=== PATIENT | male | born 1990 | race Caucasian/White ===

== ENCOUNTER 2017-04-21 19:54 | Emergency (ER) | payer MEDICAID ==
[2017-04-21 20:08] VITALS: BP 141/98
--- NOTE | 2017-04-21 21:22 | EDM.PDOC ---
ED HPI GENERAL MEDICAL PROBLEM - General Chief Complaint: General Stated Complaint: SOB SHAKEY SOME NAUSEA Time Seen by Provider: 04/21/17 21:00 Source of Information: Reports: Patient History Limitations: Reports: No Limitations - History of Present Illness INITIAL COMMENTS - FREE TEXT/NARRATIVE: 27-year-old male presents for evaluation treatment of multiple vague complaints. Patient reports today he started experiencing dizziness, nausea, lightheadedness, weakness and fatigue. He denies any vomiting, diarrhea or cough. He reports that his stomach has been feeling upset easily. Patient reports that he moved to [place], [place] about a year ago from [place]. He states periodically while in [place] he had pain to the left side of his chest around ribs 5 and 6. He has been worked up for this in [place] and told he had costochondritis or pleurisy. Patient reports that he experienced the sharp pain and left-sided chest pain again today. It has resolved prior to arrival in the ER. Reports pain with deep breathing when the chest pain is present. Additionally, patient complains of a sharp pain in his abdomen. States that it moves throughout his abdomen. Reports that on Saturday he had severe pain in his abdomen from not eating. Reports that several hours after eating and drinking the pain resolves. States he was told previously he has an ulcer in his stomach. He has not tried any medications for this. Additionally, patient was seen in [place] recently for polyuria. Urine was negative. He also reports polydipsia. Unclear if any lab studies were done. Treatments HOSPITAL FELLOW: Reports: Other (see below) Other Treatments HOSPITAL FELLOW: [facility]N treatment bilateral upper abdomen Pain Score (Numeric/FACES): 2 - Related Data Allergies Allergy/AdvReac Type Severity Reaction Status Date / Time No Known Allergies Allergy Verified 04/21/17 20:08 Home Meds: Home Meds . [No Known Home Meds] 04/21/17 [History] Past Medical History - Past Health History Medical/Surgical History: Denies Medical/Surgical History Social & Family History - Family History Family Medical History: Noncontributory - Tobacco Use Smoking Status *Q: Never Smoker - Caffeine Use Caffeine Use: Reports: Coffee - Recreational Drug Use Recreational Drug Use: No ED ROS GENERAL - Review of Systems Review Of Systems: See Below Constitutional: Reports: Malaise, Weakness, Fatigue. Denies: Weight Loss, Weight Gain Respiratory: Reports: Shortness of Breath Cardiovascular: Reports: Chest Pain Endocrine: Reports: Fatigue, Polydypsia, Polyuria GI/Abdominal: Reports: Abdominal Pain, Nausea. Denies: Diarrhea, Vomiting Neurological: Reports: Dizziness, Headache ED EXAM, GENERAL - Physical Exam Exam: See Below Exam Limited By: No Limitations General Appearance: Alert, WD/WN, No Apparent Distress Ears: Normal External Exam Ear Exam: Right Ear: TM Perforation, Left Ear: TM normal Nose: Normal Inspection Throat/Mouth: Normal Inspection, Normal Lips, Normal Voice, No Airway Compromise Respiratory/Chest: No Respiratory Distress, Lungs Clear, Normal Breath Sounds, Chest Non-Tender Cardiovascular: Normal Peripheral Pulses, Regular Rate, Rhythm, No Murmur GI/Abdominal: Normal Bowel Sounds, Soft, Non-Tender Neurological: Alert, Oriented, Normal Cognition Psychiatric: Normal Affect, Normal Mood Course - Vital Signs Last Recorded V/S: Last Vital Signs Temp 36.3 C 04/21/17 20:04 Pulse 77 04/21/17 20:04 Resp 18 04/21/17 20:04 BP 141/98 H 04/21/17 20:04 Pulse Ox 100 04/21/17 20:04 - Orders/Labs/Meds Labs: Laboratory Tests 04/21/17 04/21/17 04/21/17 Range/Units 21:26 21:26 21:28 WBC 9.50 H (4.23-9.07) K/mm3 RBC 4.48 L (4.63-6.08) M/mm3 Hgb 14.7 (13.7-17.5) gm/L Hct 41.6 (40.1-51.0) % MCV 92.9 H (79.0-92.2) fl MCH 32.8 H (25.7-32.2) pg MCHC 35.3 (32.2-35.5) g/dl RDW Std Deviation 39.9 (35.1-43.9) fL Plt Count 196 (163-337) K/mm3 MPV 10.1 (9.4-12.3) fl Neut % (Auto) 84.5 H (34.0-67.9) % Lymph % (Auto) 9.4 L (21.8-53.1) % [place] % (Auto) 5.4 (5.3-12.2) % Eos % (Auto) 0.5 L (0.8-7.0) Baso % (Auto) 0.1 (0.1-1.2) % Neut # (Auto) 8.03 H (1.78-5.38) K/mm3 Lymph # (Auto) 0.89 L (1.32-3.57) K/mm3 [place]ander # (Auto) 0.51 (0.30-0.82) K/mm3 Eos # (Auto) 0.05 (0.04-0.54) K/mm3 Baso # (Auto) 0.01 (0.01-0.08) K/mm3 Manual Slide Review Normal smear Sodium 141 (136-145) mEq/L Potassium 3.9 (3.5-5.1) mEq/L Chloride 105 (98-107) mEq/L Carbon Dioxide 28 (21-32) mEq/L Anion Gap 11.9 (5-15) BUN 9 (7-18) mg/dL Creatinine 1.0 (0.7-1.3) mg/dL Est Cr Clr Drug Dosing 113.90 mL/min Estimated GFR (MDRD) > 60 (>60) mL/min BUN/Creatinine Ratio 9.0 L (14-18) Glucose 121 H (74-106) mg/dL Calcium 9.1 (8.5-10.1) mg/dL Total Bilirubin 0.3 (0.2-1.0) mg/dL AST 19 (15-37) U/L ALT 20 (16-63) U/L Alkaline Phosphatase 81 (46-116) U/L Total Protein 7.5 (6.4-8.2) g/dl Albumin 4.2 (3.4-5.0) g/dl Globulin 3.3 gm/dL Albumin/Globulin Ratio 1.3 (1-2) TSH 3rd Generation 1.247 (0.358-3.74) uIU/mL Urine Color Light yellow (Yellow) Urine Appearance Clear (Clear) Urine pH 7.0 (5.0-8.0) Ur Specific [place] 1.010 (1.005-1.030) Urine Protein Negative (Negative) Urine Glucose (UA) Negative (Negative) Urine Ketones Negative (Negative) Urine Occult Blood Negative (Negative) Urine Nitrite Negative (Negative) Urine Bilirubin Negative (Negative) Urine Urobilinogen 0.2 (0.2-1.0) Ur Leukocyte Esterase Negative (Negative) Urine RBC Not seen (0-5) /hpf Urine WBC Not seen (0-5) /hpf Ur Epithelial Cells Not seen (0-5) /hpf Urine Bacteria Not seen (FEW) /hpf Urine Mucus Not seen (FEW) /hpf - Radiology Interpretation Free Text/Narrative:: chest 2 view shows no acute intrathoracic process - Re-Assessments/Exams Free Text/Narrative Re-Assessment/Exam: 04/21/17 22:24 PERC rule rules out PE. I reviewed the lab and x-ray results with the patient. I feel is likely a viral illness. His symptoms should resolve within 1-2 weeks. I encouraged him to rest, drink fluids and take [id number] Tylenol or Motrin. Follow-up with primary care provider if not much better in one week. Departure - Departure Time of Disposition: 22:24 Disposition: Home, Self-Care 01 Condition: Good Clinical Impression: Viral illness - Discharge Information Referrals: PCP,None [Primary Care Provider] - Forms: ED Department Discharge Additional Instructions: [id number] Tylenol or Motrin as needed for pain relief. Expect your symptoms to last for the next 1-2 weeks. If you're not much better in one week follow-up with family medicine. If you need a provider here in [place], recommend Jessica Guevara or [facility]. Please call [phone] schedule with one of them. may try an [id number] PPI product such as Prilosec or Nexium to help with your stomach discomfort. Please return to the ER if your symptoms change or worsen.
--- NOTE | 2017-04-22 12:17 | CR ---
Chest: Two views of the chest were obtained. Comparison: No prior study. Heart size and mediastinum are normal. Lungs are clear. Bony structures are unremarkable for the patient's age. Impression: 1. Nothing acute is identified on two-view chest x-ray. Diagnostic code #1
== END 2017-04-21 22:33 | disposition home or self-care (01) ==
LOC: JD.ED 19:54
DX: B34.9 Viral infection, unspecified (principal)
CPT/HCPCS: 36415; 71020; 71020-26; 80053; 81001; 84443; 85025; 99283; 99285

== ENCOUNTER 2017-05-26 19:32 | Emergency (ER) | payer MEDICAID ==
[2017-05-26 21:03] VITALS: BP 137/100
--- NOTE | 2017-05-26 21:04 | EDM.PDOC ---
ED HPI GENERAL MEDICAL PROBLEM - General Chief Complaint: Chest Pain Stated Complaint: CHEST PAIN Time Seen by Provider: 05/26/17 20:25 Source of Information: Reports: Patient History Limitations: Reports: No Limitations - History of Present Illness INITIAL COMMENTS - FREE TEXT/NARRATIVE: Patient is a 25-year-old male presents ED complaining of left-sided intermittent chest discomfort. States started approximately 2 weeks ago discomfort came on with unclear precipitating cause. States has been intermittent worsened at times with breathing and palpation. Pain is pin point just above his left nipple. At times the pain stops him from taking a deep breath. Only last for a few seconds. No recent trauma or activity and he precipitated this. 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 He has no prior history of similar symptoms. Denies any cough, shows breath, fever, nausea/vomiting, abdominal pain, palpitations, or preceding 3/syncopal episodes. He has taken Tylenol with minimal change. Patient is a smoker utilize alcohol. He was smokes marijuana on intermittent basis. Last use was 2 months ago. Postive family history of heart disease his father at age of 53. He is still living. Left Mid-Sternal Chest Pain Score (Numeric/FACES): 9 - Related Data Allergies Allergy/AdvReac Type Severity Reaction Status Date / Time No Known Allergies Allergy Verified 05/26/17 19:48 Home Meds: Home Meds Fish Oil/[place]-3 Fatty Acids [Fish Oil 1,000 MG] 1,000 mg PO DAILY 05/26/17 [ History] Past Medical History - Past Health History Medical/Surgical History: Denies Medical/Surgical History Social & Family History - Family History Family Medical History: Noncontributory - Tobacco Use Smoking Status *Q: Never Smoker Second Hand Smoke Exposure: No - Caffeine Use Caffeine Use: Reports: Soda - Recreational Drug Use Recreational Drug Use: Yes Drug Use in Last 12 Months: Yes Recreational Drug Type: Reports: Marijuana/Hashish Recreational Drug Use Frequency: Not Used In Over 3 Months ED ROS GENERAL - Review of Systems Review Of Systems: ROS reveals no pertinent complaints other than HPI. ED EXAM, GENERAL - Physical Exam Exam: See Below Exam Limited By: No Limitations General Appearance: Alert, WD/WN, No Apparent Distress Ears: Hearing Grossly Normal Nose: Normal Inspection Throat/Mouth: Normal Voice, No Airway Compromise Neck: Normal Inspection, Supple Respiratory/Chest: No Respiratory Distress, Lungs Clear, Normal Breath Sounds, No Accessory Muscle Use Cardiovascular: Normal Peripheral Pulses, Regular Rate, Rhythm, No Murmur Peripheral Pulses: 2+: Radial (L), Radial (R) GI/Abdominal: Normal Bowel Sounds, Soft, Non-Tender, No Organomegaly, No Distention Extremities: Normal Inspection, Non-Tender, No Pedal Edema Neurological: Alert, Oriented, CN II-XII Intact, Normal Cognition, No Motor/ Sensory Deficits Psychiatric: Normal Affect, Normal Mood Skin Exam: Warm, Dry, Intact, Normal Color Course - Vital Signs Last Recorded V/S: Last Vital Signs Temp 97.2 F 05/26/17 19:47 Pulse 69 05/26/17 19:47 Resp 19 05/26/17 19:47 BP 137/100 H 05/26/17 19:47 Pulse Ox 100 05/26/17 19:47 - Orders/Labs/Meds Orders: Active Orders 24 hr Category Date Time Status EKG Documentation Completion [RC] ASDIRECTED Care 05/26/17 20:00 Active CXR [Chest 1V Frontal] [CR] Stat Exams 05/26/17 20:50 Taken Ibuprofen [Motrin] Med 05/26/17 21:50 Once 800 mg PO ONETIME ONE EKG 12 Lead [EK] Stat Ther 05/26/17 20:00 Ordered Medication Orders Ibuprofen (Motrin) 800 mg PO ONETIME ONE Stop: 05/26/17 21:51 Meds: Medications Generic Name Dose Route Start Last Admin Trade Name Freq PRN Reason Stop Dose Admin Ibuprofen 800 mg 05/26/17 21:50 Motrin PO 05/26/17 21:51 ONETIME ONE - Re-Assessments/Exams Free Text/Narrative Re-Assessment/Exam: EKG revealed sinus rhythm rate of [address] changes. Ordered chest x-ray one view. Chest x-ray did not reveal any acute abnormalities. Final interpretation is pending. Will discharge patient home with instructions as documented. Departure - Departure Time of Disposition: 21:51 Disposition: Home, Self-Care 01 Condition: Good Clinical Impression: Atypical chest pain, Left-sided chest wall pain Referrals: PCP,None [Primary Care Provider] - Forms: ED Department Discharge Additional Instructions: As discussed chest x-ray and EKG did not reveal any acute abnormalities. Etiology of current complaint is muscle skeletal in nature. Treatment is ibuprofen 600 mg every 6 hours and Tylenol 650 mg every 6 hours in alternating fashion for pain. Symptoms should resolve in the next few days. Refrain from any activities that may cause worsening discomfort. Follow-up with her PCP in the next week for reevaluation as needed. Return to the ED for any new or worsening symptoms. - My Orders Last 24 Hours: My Active Orders 05/26/17 20:00 EKG Documentation Completion [RC] ASDIRECTED EKG 12 Lead [EK] Stat 05/26/17 20:50 CXR [Chest 1V Frontal] [CR] Stat 05/26/17 21:50 Ibuprofen [Motrin] 800 mg PO ONETIME ONE - Assessment/Plan Last 24 Hours: My Active Orders 05/26/17 20:00 EKG Documentation Completion [RC] ASDIRECTED EKG 12 Lead [EK] Stat 05/26/17 20:50 CXR [Chest 1V Frontal] [CR] Stat 05/26/17 21:50 Ibuprofen [Motrin] 800 mg PO ONETIME ONE
[2017-05-26] MEDS ORDERED: Ibuprofen 800 MG Tab PO ONE (21:50)
--- NOTE | 2017-05-27 06:37 | CR ---
Chest: Portable view of the chest was obtained. Comparison: Prior chest x-ray of 04/21/17. Heart size and mediastinum are normal. Lungs are clear. Mild scoliosis is present within the spine. Impression: 1. Nothing acute is appreciated on portable chest x-ray. Diagnostic code #2
== END 2017-05-26 22:05 | disposition home or self-care (01) ==
LOC: JD.ED 19:32
DX: R07.89 Other chest pain (principal)
CPT/HCPCS: 71010; 93005; 99285; A9270; 99284